=== PATIENT | male | born 1960 | race Caucasian/White ===

== ENCOUNTER 2016-06-22 18:27 | Emergency (ER) | payer OTHER ==
[~2016-06-22 18:27] MED LIST: ASA-CA CARB-MA325 MG PO; ASPIRIN ENTERI325 M1 PO; BACTRIM DS TABL1 TA1 PO; CHOLESTEROL MED; FLEXERIL PO; FLEXERIL10 MG PO; HYDROCODONE-APA1 T55 PO; IBUPROFEN800 MG PO; LISINOPRIL-HCTZ1 T14 PO; LORTAB 5/500 TA1 TA1 PO; LORTAB 7.5-5001 TAB PO; LORTAB 7.51 TAB 7.5/ PO; MOBIC PO; MOBIC15 MG PO; NEURONTIN; OXAPROZIN600 MG PO; PAXIL PO; PAXIL40 MG PO; PREDNISONE; SIMVASTATIN20 MG PO; SUDAFED; VICODIN 5/500 T1 TAB PO; VICODIN PO; VOLTAREN75 MG PO; ZANTAC150 MG PO; ZESTORETIC; ZOCOR20 MG PO; ZYRTEC
[2016-06-25] MEDS ORDERED: PAXIL40 MG PO (13:06)
[2016-06-25] MEDS ORDERED: LISINOPRIL5 MG PO (13:06)
[2016-06-25] MEDS ORDERED: MOBIC15 MG PO (13:06)
[2016-06-25] MEDS ORDERED: ZOCOR10 MG PO (13:06)
[2016-06-25] MEDS ORDERED: PANTOPRAZOLE SO40 MG PO (14:39)
== END 2016-06-22 18:34 | disposition home or self-care (01) ==
LOC: CFTX 18:27
DX: M54.42 Lumbago with sciatica, left side (principal); I10 Essential (primary) hypertension; F32.9 Major depressive disorder, single episode, unspecified; F17.210 Nicotine dependence, cigarettes, uncomplicated
CPT/HCPCS: 99283

== ENCOUNTER → 2016-06-25 | Day surgery (SDC) | payer OTHER ==
[~2016-06-25] MED LIST changes: +LISINOPRIL5 MG PO; +PANTOPRAZOLE SO40 MG PO; +ZOCOR10 MG PO
--- NOTE | ~2016-06-25 | OR ---
Unit #: [id number] #: [id number] Patient: KIM RICKETTS [id number] [address] [address] [id number] O MR#: [id number] NAME: KIM RICKETTS ROOM: Date of Procedure: 06/25/2016 Admission Date: 06/25/2016 Surgeon: Aakash Joe M.D. : 1960 Attending Physician: Aakash Joe M.D. Primary Care Physician: Bucky Henson M.D. 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 This was at least 4 to 5 cm in size and was rounded. This was pointed out with the patient, he says he is aware of it. It will be easily removed by snare cautery either in outpatient surgical or dermatologic office. I have explained the patient and his that if he wants it to be removed, just call our office and we will have it taken care of. Dictated by... Priya Chowdary/guilherme TD: 06/25/2016 20:08 JOB #: [id number] OPERATIVE REPORT X Aakash Joe MD X PROCEDURE OPERATIVE NOTE
--- NOTE | ~2016-06-25 | OR ---
Unit #: [id number] #: [id number] Patient: KIM RICKETTS [id number] [address] [address] [id number] O MR#: [id number] NAME: KIM RICKETTS ROOM: Date of Procedure: 06/25/2016 Admission Date: 06/25/2016 Surgeon: Aakash Joe M.D. : 1960 Attending Physician: Aakash Joe M.D. Primary Care Physician: Bucky Henson M.D. OPERATIVE REPORT PRIMARY CARE PHYSICIAN Bucky Henson M.D. PREOPERATIVE DIAGNOSES The patient presented with a history of daytime as well as nocturnal retrosternal ascending heartburn, and gastroesophageal reflux disease. In addition, he also needs a screening colonoscopy. PROCEDURES PERFORMED Upper gastrointestinal endoscopy and biopsy as well as colonoscopy with polypectomy. POSTOPERATIVE DIAGNOSES For upper endoscopy: 1. The patient had mild distal erosive esophagitis. 2. There was mild prepyloric antral gastritis. 3. Moderate focal patchy erosive duodenitis. 4. Rest of the examination up to third part of duodenum was normal. A biopsy was obtained from the antrum for CLOtest. For colonoscopy: 1. The patient had two sessile polyps, one each in the proximal and mid ascending colon. These were 8 and 5 mm each respectively, both were removed using snare polypectomy. 2. Mild sigmoid and descending colon diverticulosis. 3. Rest of the examination up to cecum was normal. The quality of the prep was excellent. RECOMMENDATIONS 1. Follow up the results of polyp histology. 2. Repeat colonoscopy in 5 years. 3. Pantoprazole 40 mg p.o. daily. 4. The patient will be followed up in the office in 3 months' time. SEDATION USED MAC. DESCRIPTION OF PROCEDURE Following detailed explanation of potential risks and complications of an upper endoscopy and a colonoscopy, namely perforation, bleeding, and complications related to sedation, the patient was brought to GI lab and laid in the left lateral decubitus position. Lubricated tip of the Olympus video upper endoscope was passed through the bite block into the Unit #: [id number] #: [id number] Patient: KIM RICKETTS proximal esophagus under direct vision. The entire esophageal mucosa was examined. The patient was noted to have grade 1 distal erosive esophagitis. The scope was then advanced into the gastric cavity and the latter was insufflated. Mucosa of the fundus, body, and antrum was examined. Mild prepyloric antral erythema erosions were noted indicating antral gastritis. Pylorus was intubated with visualization of the duodenal bulb. The latter was noted to have moderate focal patchy erosive duodenitis. Second and third part of duodenum was normal. Upon withdrawal and retroflexion, incisura, cardia, and greater curve was examined and biopsy was obtained from the antrum for CLOtest. The scope was then withdrawn in the distal esophagus. Entire esophageal mucosa was examined all the way up to pharynx. No additional findings were noted. The examination table was then turned by 180 degrees and the patient was positioned for a colonoscopy. A digital rectal examination was performed, which was normal. Lubricated tip of the Olympus video colonoscope was inserted through the anus and advanced under direct vision. The scope was advanced past rectosigmoid into descending colon. Multiple medium-sized diverticula were seen in this area. The scope tip was then navigated all the way up to cecum with visualization of the ileocecal valve and the appendiceal orifice. Preparation was excellent with good visualization and photodocumentation was obtained. Successive segments of the colonic mucosa were examined upon withdrawal. The patient was noted to have two sessile polyps. These were 5 mm and 8 mm each present in the proximal and mid ascending colon. Both were removed using snare polypectomy. They were retrieved and sent for histology. No additional polyps were noted. Other than the left-sided diverticula, no other abnormalities were found. The patient did not have any hemorrhoids at anal verge. The scope was then withdrawn and the patient returned to the recovery area. He tolerated the procedure without any postprocedure complications. Dictated by... Priya Chowdary TD: 06/25/2016 19:12 JOB #: [id number] OPERATIVE REPORT X Aakash Joe MD X PROCEDURE OPERATIVE NOTE
== END | disposition home or self-care (01) ==
LOC: COPS 12:28
DX: Z12.11 Encounter for screening for malignant neoplasm of colon (principal); K21.0 Gastro-esophageal reflux disease with esophagitis; K29.70 Gastritis, unspecified, without bleeding; K29.80 Duodenitis without bleeding; D12.2 Benign neoplasm of ascending colon; K57.30 Diverticulosis of large intestine without perforation or abscess without bleeding; D49.2 Neoplasm of unspecified behavior of bone, soft tissue, and skin; I10 Essential (primary) hypertension; E78.5 Hyperlipidemia, unspecified; Z85.828 Personal history of other malignant neoplasm of skin
CPT/HCPCS: 87077; 88305; J2250

== ENCOUNTER 2016-12-21 19:27 | Emergency (ER) | payer OTHER ==
[~2016-12-21] VITALS: Ht 188 cm; Wt 104.3 kg
--- NOTE | ~2016-12-21 | CT2 ---
[facility] A Service of [facility] RADIOLOGY TEXT RESULTS PATIENT: KIM RICKETTS LOCATION: [facility] : 64 UNIT #: [id number] AGE: [address]: Payam Ramirez MD SEX: M ORDER DR: [id number] [facility] [address] [place], [place] [address] [id number] MR#: [id number] Acc #: [id number] NAME: KIM RICKETTS : 1960 SEX: M STUDY DATE/TIME: 12/21/2016 22:13 UNIT: [facility] ROOM: STUDY DESCRIPTION: CT Abd and Pelv W Cont Attending Physician: Payam Ramirez M.D. Ordering Physician: Payam Ramirez M.D. Primary Care Physician: Bucky Henson M.D. MEDICAL IMAGING REPORT This report is preliminary unless electronic signature is present EXAM Abdomen and pelvis CT with contrast, 12/21/2016. INDICATIONS 56-year-old male with low back pain, stomach pain, diarrhea and bloody stool today. Mid abdominal pain extending into the back bilaterally. Skin cancer. Hernia repair procedures. No history of chemotherapy or radiation therapy. TECHNIQUE Contrast-enhanced abdomen and pelvis CT was performed compared with 12/31/2015. This CT exam was performed with one or more of the following radiation dose reduction techniques: automatic exposure control, adjustment of mA and/or kV according to patient size, and iterative reconstruction. FINDINGS CT ABDOMEN: Lung bases demonstrate scattered areas of atelectasis and scarring. No effusion. Aorta demonstrates no aneurysm or dissection. Spleen and adrenal glands are normal. Pancreas unremarkable, gallbladder contracted, liver demonstrates mild fatty infiltration. Kidneys are unremarkable. CT PELVIS: The prostate is enlarged. This should be correlated with PSA and physical exam findings. It measures up to 5.7 cm. Bladder unremarkable. No free fluid or drainable fluid collection in the pelvis. There is diverticulosis of the colon. There is no evidence of bowel obstruction, and the appendix is normal. There is subtle probable low grade short-segment inflammatory change of the splenic flexure of the colon. Imaging features suggest a short-segment inflammatory or infectious colitis rather than diverticulitis. There is no free air or abscess. [facility]. [facility] A Service of [facility] RADIOLOGY TEXT RESULTS PATIENT: KIM RICKETTS [facility] [id number] : [birth year] UNIT #: [id number] AGE: [address]: Payam Ramirez MD SEX: M ORDER DR: Inguinal canals are unremarkable. No suspicious bone lesion. IMPRESSION 1. There is low grade inflammatory change and wall thickening of the splenic flexure of the colon. Imaging features suggest an inflammatory or infectious colitis rather than diverticulitis. Colonic neoplasm in the differential but felt to be less likely as well. Colonoscopy would be complimentary if not recently performed. Follow up views are recommended to document resolution after appropriate therapy. 2. There is mild diverticulosis. No abscess, free air or bowel obstruction. 3. Appendix normal. 4. Prostatomegaly 5. Fatty infiltration of the liver to a mild degree. Dictated by... Phuc Carmichael M.D. THIS IS AN ELECTRONICALLY VERIFIED REPORT Phuc Carmichael M.D. at 12/22/2016 9:29 PM Heike TD: 12/22/2016 17:52 JOB #: [id number] MEDICAL IMAGING REPORT Page 1 of 1 COPY
[2016-12-21 20:52] LABS: BASOPHIL# 0.1 X10e3 (0-0.3); BASOPHIL% 0.7 % (0-2.5); EOSINOPHIL# 0.2 X10e3 (0-0.7); EOSINOPHIL% 1.8 % (0.0-7.0); HEMATOCRIT 46.1 % (38.0-50.0); HEMOGLOBIN 15.5 gm/dL (13.0-16.0); LYMPHOCYTE# 3.9 X10e3 (1.0-3.5); LYMPHOCYTE% 38.3 % (17.0-45.0); MEAN CELL VOLUME 88.8 FL (83-96); MEAN CORPUSCULAR HEMOGLOBIN 29.9 PG (28-34); MEAN CORPUSCULAR HGB CONC 33.7 g/dL (30-36); MEAN PLATELET VOLUME 7.8 FL (6.5-11.5); MONOCYTE# 0.7 X10e3 (0-1.0); MONOCYTE% 7.3 % (3.0-12.0); NEUTROPHIL# 5.3 X10e3 (1.5-7.1); NEUTROPHIL% 51.9 % (40-75); PLATELET COUNT 204 X10e3 (140-420); RED BLOOD COUNT 5.19 X10e (3.90-5.60); RED CELL DISTRIBUTION WIDTH 13.9 % (11.0-15.5); WHITE BLOOD COUNT 10.1 X10e3 (4.0-10.5)
[2016-12-21 20:54] LABS: DIFF IND NO
[2016-12-21 21:04] LABS: PARTIAL THROMBOPLASTIN TIME 27.1 SECONDS (23.5-31.3); PROTHROMBIN TIME (PATIENT) 10.7 SECONDS (10.0-11.7)
[2016-12-21 21:19] LABS: URINE SOURCE CLEAN CATCH
[2016-12-21 21:30] LABS: ALBUMIN SERUM 3.8 g/dL (3.5-5.0); BILIRUBIN, DIRECT 0.1 mg/dL (0.0-0.2); BILIRUBIN,INDIRECT 0.3 mg/dL (0.0-0.9); BILIRUBIN,TOTAL 0.4 mg/dL (0.2-2.0); CALCIUM SERUM 8.6 mg/dL (8.4-10.2); CREATININE SERUM 1.1 mg/dL (0.6-1.4); GLOM FILT RATE Estimated 75.7 mL/min (>60); POTASSIUM 3.8 mmol/L (3.5-5.1); PROTEIN TOTAL SERUM 6.3 g/dL (6.0-8.3)
[2016-12-21 21:37] LABS: URINE APPEARANCE CLEAR; URINE BILIRUBIN NEG (NEG); URINE BLOOD NEG (NEG); URINE COLOR YELLOW; URINE GLUCOSE NEG (NEG); URINE KETONE NEG (NEG); URINE LEUKOCYTE ESTERASE NEG (NEG); URINE NITRATE NEG (NEG); URINE PROTEIN NEG (NEG); URINE SPECIFIC GRAVITY 1.025 (1.003-1.035); URINE UROBILINOGEN 0.2 MG/DL (NEG)
[2016-12-21 21:44] LABS: CULTURE INDICATED? NO
== END 2016-12-21 23:20 | disposition home or self-care (01) ==
LOC: CED 19:27
PROVIDERS: Emergency Medicine
DX: K52.9 Noninfective gastroenteritis and colitis, unspecified (principal); K21.9 Gastro-esophageal reflux disease without esophagitis; I10 Essential (primary) hypertension; Z98.890 Other specified postprocedural states; F17.200 Nicotine dependence, unspecified, uncomplicated; Z79.899 Other long term (current) drug therapy
CPT/HCPCS: 36415; 74177; 80048; 80076; 81003; 83690; 85025; 85610; 85730; 96361; 96374; 96375; 99284; J2270; J2405; Q9967